=== PATIENT | male | born 1985 | race African-American/Black ===

== ENCOUNTER 2021-06-21 13:32 | Emergency (ER) | payer SELFPAY ==
[~2021-06-21] VITALS: Ht 175.3 cm; Wt 125.0 kg
[2021-06-21] MEDS ORDERED: ONDANSETRON HCL 4MG/2ML INJ IV STA ×2 (13:39→20:38)
[2021-06-21] MEDS ORDERED: MORPHINE SULFATE 4 MG/ML CPJ (NOT FOR IM USE) IV STA ×2 (13:39→20:38)
[2021-06-21] MEDS ORDERED: TETANUS, DIPHTHERIA, PERTUSSIS VAC/PF 0.5ML (>7YR OLD) IM ONE (13:45)
[2021-06-21] MEDS ORDERED: CEFAZOLIN 1000MG PREMIX 50 ML IV ONE (13:45)
[2021-06-21] MEDS ORDERED: SODIUM CHLORIDE 0.9% 1,000 ML IV ONE (13:45)
[2021-06-21 14:22] LABS: BASOPHILS % 0.6 % (0.0-2.0); EOSINOPHILS % 1.6 % (0.0-5.0); HEMATOCRIT. 44.8 % (42.0-52.0); HEMOGLOBIN. 14.8 g/dL (14.0-18.0); LYMPHOCYTES % 53.8 % (20.0-50.0); MEAN CORPUSCULAR HEMOGLOBIN 30.7 pg (28.0-32.0); MEAN CORPUSCULAR VOLUME 93.1 fL (80.0-94.0); MEAN PLATELET VOLUME 9.7 fl (7.4-10.4); MONOCYTES % 10.2 % (2.0-8.0); NEUTROPHILS % 33.8 % (40.0-76.0); PLATELET 191 x1000/uL (130-400); RED BLOOD CELL COUNT 4.81 mill/uL (4.7-6.1); RED CELL DISTRIBUTION WIDTH 13.1 % (11.6-14.6)
[2021-06-21 14:33] LABS: CHLORIDE 111 mEq/L (98-107)
[2021-06-21 14:37] LABS: ETHANOL BLOOD < 10 mg/dL
[2021-06-21 14:48] LABS: PARTIAL THROMBOPLASTIN TIME 26.3 sec (23.4-31.0); PROTHROMBIN TIME 10.8 sec (9.6-11.0)
[2021-06-21 21:08] VITALS: BP 120/102
[2021-06-21] MEDS ORDERED: IOHEXOL-350 100 ML BOTTLE ONE (21:22)
== END 2021-06-21 20:44 | disposition short-term general hospital (02) ==
LOC: ER 13:32
DX: S52.92XB Unspecified fracture of left forearm, initial encounter for open fracture type I or II (principal); W34.09XA Accidental discharge from other specified firearms, initial encounter; Y93.89 Activity, other specified; Y92.89 Other specified places as the place of occurrence of the external cause; Y99.8 Other external cause status; M79.602 Pain in left arm; F12.10 Cannabis abuse, uncomplicated
CPT/HCPCS: 36415; 71045; 73080; 73206; 80053; 80320; 85025; 85610; 85730; 86850; 86900; 86901; 90471; 90715; 96365; 96375; 96376; 99291; J0690; J2270; J2405; J7030; Q9967; G0480